=== PATIENT | male | born 1985 | race Caucasian/White ===

== ENCOUNTER → 2018-05-29 07:06 | Outpatient (CLI) | payer OTHER, SELFPAY ==
--- NOTE | 2018-05-29 | DI.MRI.S_ITS ---
PROCEDURE: MR HEAD/BRAIN WO/W CON INDICATIONS: CONGENITAL MALFORMATION OF BRAIN TECHNIQUE: Noncontrast axial T1 spin echo, axial T2 fast spin echo, sagittal and axial FLAIR, coronal T2 fast spin echo, axial gradient echo, axial diffusion and ADC through the brain. After the administration of contrast, axial and coronal 3D VIBE or T1 spin echo with fat saturation through the brain. COMPARISON: None. FINDINGS: Image quality: Excellent. CSF Spaces: Basal cisterns are patent. No extra-axial fluid collections. Ventricles are normal in size and shape. Brain: There is a 12 m AP x 11 m transverse hypointensity in the right cerebellum on gradient sequence. This area corresponds to heterogenous T2/FLAIR signal. It demonstrates partial enhancement with areas of linear enhancement extending peripherally. These are most suggestive of draining veins. There is minimal appreciable surrounding gliosis. No midline shift. The brainstem appears normal. Diffusion-weighted images demonstrate no acute ischemic insults. No chronic ischemic insults. Normal intravascular flow voids are present. Skull and face: Calvarial marrow is normal in signal. Orbits appear normal. Sinuses: Sinuses and mastoids appear clear. IMPRESSION: 1. Focus of gradient hypointensity in the right cerebellum with areas of linear enhancement as above. Appearance is suggestive of AVM. Further evaluation with a CTA for vascular evaluation or conventional angiogram is recommended. Dictated by: Tonie Huffman M.D. on 05/29/2018 at 9:57 Approved by: Tonie Huffman M.D. on 05/29/2018 at 12:15
== END ==
PROVIDERS: Visit Provider General Practice
DX: Q04.9 Congenital malformation of brain, unspecified (principal)
CPT/HCPCS: 70553

== ENCOUNTER → 2019-05-18 07:34 | Outpatient (CLI) | payer OTHER, SELFPAY ==
--- NOTE | 2019-05-18 07:39 | DI.MRI.S_ITS ---
PROCEDURE: MR HEAD/BRAIN WO/W CON INDICATIONS: HEMANGIOMA TECHNIQUE: Noncontrast axial T1 spin echo, axial T2 fast spin echo, sagittal and axial FLAIR, coronal T2 fast spin echo, axial gradient echo, axial diffusion and ADC through the brain. After the administration of contrast, axial and coronal 3D VIBE or T1 spin echo with fat saturation through the brain. COMPARISON: [facility], MR, MR HEAD/BRAIN WO/W CON, 05/29/2018, 7:22. FINDINGS: Image quality: Excellent. CSF Spaces: Basal cisterns are patent. No extra-axial fluid collections. Ventricles are normal in size and shape. Brain: There is a 9 mm mass with susceptibility artifact in the right cerebellar hemisphere, demonstrating isointense T1 signal and hyperintense T2 signal. On contrast enhanced images, there are prominent vessels surrounding the structure. There is no significant mass effect. 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 Compared with the last examination, there is no significant change. No mass effect or midline shift. No intracranial bleeds. There are a few small foci of nonspecific T2 hyperintensity in the right frontal white matter. The brainstem appears normal. Diffusion-weighted images demonstrate no acute ischemic insults. No chronic ischemic insults. Normal intravascular flow voids are present. Skull and face: Calvarial marrow is normal in signal. Orbits appear normal. Sinuses: Sinuses and mastoids appear clear. IMPRESSION: 1. A 9 mm mass with susceptibility artifacts in the right cerebellum. Enlarged vessels are present surrounding the mass. 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 Compared with the last exam of 05/29/2018, there is no significant change. 2. A few small foci of nonspecific T2 hyperintensity in the right frontal white matter. Differential diagnosis include small vessel ischemia or demyelinating process such as multiple sclerosis. Recommend clinical correlation. Dictated by: Arnel Corcoran M.D. on 05/18/2019 at 11:00 Approved by: Arnel Corcoran M.D. on 05/18/2019 at 11:16
== END ==
DX: D18.09 Hemangioma of other sites (principal)
CPT/HCPCS: 70553